=== PATIENT | male | born 1930 | race Caucasian/White ===

== ENCOUNTER 2018-06-11 20:11 | Inpatient (IN) | payer MEDICARE ==
[~2018-06-11] VITALS: Ht 188 cm; Wt 95.5 kg
[~2018-06-11 20:11] MED LIST: AMIO200T40 PO; CARV-50 PO; GLIM1TAB46 PO; MIRA25TA PO; MV-M1TAB37 PO; PROB500T10 PO; RIVA15TA PO; VALS1TAB75 PO
[2018-06-11 21:36] LABS: BASOPHILS # (AUTO) 0.1 X10'3 (0-0.2); BASOPHILS % (AUTO) 0.9 % (0-1); EOSINOPHILS # (AUTO) 0.2 X10'3 (0-0.9); EOSINOPHILS % (AUTO) 2.3 % (0-6); HEMATOCRIT 40.7 % (42.0-52.0); HEMOGLOBIN 13.4 g/dl (14.0-17.9); LYMPHOCYTES # (AUTO) 1.3 X10'3 (1.1-4.8); LYMPHOCYTES % (AUTO) 19.2 % (21-51); MEAN CORPUSCULAR HEMOGLOBIN 33.8 PG (27.0-31.0); MEAN CORPUSCULAR HGB CONC 33.1 % (33.0-36.5); MEAN CORPUSCULAR VOLUME 102.3 FL (78-98); MEAN PLATELET VOLUME 8.5 FL (7.4-10.4); MONOCYTES # (AUTO) 0.7 X10'3 (0-0.9); MONOCYTES % (AUTO) 10.6 % (2-12); NEUTROPHILS # (AUTO) 4.6 X10'3 (1.8-7.7); PLATELET COUNT 169 X10'3 (140-440); RED BLOOD COUNT 3.97 X10'6 (4.70-6.10); RED CELL DISTRIBUTION WIDTH 15.2 % (11.5-14.5); WHITE BLOOD COUNT 6.9 X10'3 (4.5-11.0)
[2018-06-11 21:51] LABS: ALANINE AMINOTRANSFERASE 27 U/L (12-78); ALBUMIN 3.2 G/DL (3.4-5.0); ALBUMIN/GLOBULIN RATIO 0.9 (1.1-1.5); ALKALINE PHOSPHATASE 91 IU/L (46-116); ANION GAP 16 (8-16); ASPARTATE AMINO TRANSFERASE 16 U/L (10-37); BILIRUBIN,TOTAL 0.7 MG/DL (0.1-1.0); BLOOD UREA NITROGEN 45 MG/DL (7-18); CHLORIDE 105 MMOL/L (99-107); CREATININE 2.81 MG/DL (0.60-1.10); GLUCOSE 109 MG/DL (70-104); POTASSIUM 3.4 MMOL/L (3.5-5.1); SODIUM 141 MMOL/L (135-145); TOTAL CARBON DIOXIDE 20.5 MMOL/L (24-32); TOTAL PROTEIN 6.7 G/DL (6.4-8.2); eGFR 22 ML/MIN
[2018-06-11 21:57] LABS: INR 1.7 INR; PROTHROMBIN TIME 17.1 SECONDS (9.0-12.0)
[2018-06-11 21:59] LABS: MAGNESIUM 2.5 MG/DL (1.5-2.4); PHOSPHORUS 3.5 MG/DL (2.3-4.5)
[2018-06-11] MEDS ORDERED: aspirin 325mg tablet PO ONE (22:00)
[2018-06-11] MEDS ORDERED: normal saline 1000ml 1,000 ML IV ONE (22:10)
[2018-06-11] MEDS ORDERED: MIRA50TA PO (22:38)
[2018-06-11] MEDS ORDERED: LOSA1TAB3 PO (22:38)
[2018-06-11] MEDS ORDERED: super beta prostate PO (22:38)
[2018-06-11] MEDS ORDERED: ZOLP10TA PO (22:38)
[2018-06-11] MEDS ORDERED: ROSU40TA21 PO (22:38)
[2018-06-11] MEDS ORDERED: ASPI-611 PO (22:38)
[2018-06-11] MEDS ORDERED: ALLO100T PO (22:38)
[2018-06-11] MEDS ORDERED: ondansetron/PF 4mg/2ml inj IV PRN (22:45)
[2018-06-11] MEDS ORDERED: magnesium hydroxide 30ml (MOM) UD suspension PO PRN (22:45)
[2018-06-11] MEDS ORDERED: acetaminophen 325mg tablet PO PRN (22:45)
[2018-06-11] MEDS ORDERED: mag hydrox/Alum hydrox/simeth 30ml oral suspension PO PRN (22:45)
[2018-06-11 23:00] LABS: HEMOGLOBIN A1C 6.6 % (4.5-6.2)
[2018-06-11 23:15] VITALS: BP 130/75
[2018-06-12 01:11] LABS: CLARITY,URINE CLEAR (Clear); COLOR,URINE YELLOW (Yellow); GLUCOSE, URINE NEGATIVE (Neg); KETONES,URINE NEGATIVE (Neg); LEUKOCYTE ESTERASE ,URINE NEGATIVE (Neg); NITRITES, URINE NEGATIVE (Neg); OCCULT BLOOD,URINE TRACE-INTACT (Neg); PH,URINE 5.5 (4.8-8.0); PROTEIN,URINE TRACE mg/dl (Neg); UROBILINOGEN,URINE 0.2 E.U/dL (0.2-1.0)
[2018-06-12 01:16] LABS: UA COLLECTION TYPE NON-SPECIFIED
[2018-06-12 01:18] LABS: BACTERIA,URINE NONE SEEN /HPF (Neg); MUCUS STRANDS NONE SEEN /LPF (Neg); RBC,URINE 0-2 /HPF (0-2); SQUAMOUS EPITHELIAL CELL,UR NONE SEEN /LPF (FEW); WBC,URINE NONE SEEN /HPF (0-4)
[2018-06-12 02:00] VITALS: BP 125/70
[2018-06-12 04:10] LABS: BASOPHILS % (AUTO) 0.3 % (0-1); EOSINOPHILS # (AUTO) 0.2 X10'3 (0-0.9); EOSINOPHILS % (AUTO) 2.6 % (0-6); HEMATOCRIT 36.9 % (42.0-52.0); HEMOGLOBIN 12.3 g/dl (14.0-17.9); LYMPHOCYTES # (AUTO) 1.5 X10'3 (1.1-4.8); LYMPHOCYTES % (AUTO) 23.1 % (21-51); MEAN CORPUSCULAR HEMOGLOBIN 33.8 PG (27.0-31.0); MEAN CORPUSCULAR HGB CONC 33.4 % (33.0-36.5); MEAN CORPUSCULAR VOLUME 101.3 FL (78-98); MEAN PLATELET VOLUME 8.6 FL (7.4-10.4); MONOCYTES # (AUTO) 0.6 X10'3 (0-0.9); MONOCYTES % (AUTO) 9.1 % (2-12); NEUTROPHILS # (AUTO) 4.1 X10'3 (1.8-7.7); NEUTROPHILS % (AUTO) 64.9 % (42-75); PLATELET COUNT 154 X10'3 (140-440); RED BLOOD COUNT 3.65 X10'6 (4.70-6.10); RED CELL DISTRIBUTION WIDTH 14.8 % (11.5-14.5); WHITE BLOOD COUNT 6.3 X10'3 (4.5-11.0)
[2018-06-12 04:23] LABS: ALANINE AMINOTRANSFERASE 25 U/L (12-78); ALBUMIN 2.8 G/DL (3.4-5.0); ALBUMIN/GLOBULIN RATIO 0.9 (1.1-1.5); ALKALINE PHOSPHATASE 82 IU/L (46-116); ANION GAP 11 (8-16); ASPARTATE AMINO TRANSFERASE 17 U/L (10-37); BILIRUBIN,TOTAL 0.6 MG/DL (0.1-1.0); BLOOD UREA NITROGEN 41 MG/DL (7-18); BUN/CREATININE RATIO 15.8 (5.4-32.0); CALCIUM 8.8 MG/DL (8.5-10.1); CHLORIDE 106 MMOL/L (99-107); CREATININE 2.59 MG/DL (0.60-1.10); GLUCOSE 99 MG/DL (70-104); POTASSIUM 3.3 MMOL/L (3.5-5.1); SODIUM 141 MMOL/L (135-145); TOTAL CARBON DIOXIDE 23.6 MMOL/L (24-32); TOTAL PROTEIN 5.9 G/DL (6.4-8.2); eGFR 24 ML/MIN
[2018-06-12 04:26] LABS: CHOL/HDL RATIO 1.7 (0.00-4.99); CHOLESTEROL 109 MG/DL (0-200); HDL CHOLESTEROL 63 MG/DL (35-60); LDL CHOLESTEROL 18 MG/DL (50-100); TRIGLYCERIDES 162 MG/DL (20-135)
[2018-06-12] MEDS ORDERED: magnesium Cl slow-release 64mg tablet PO PRN (05:35)
[2018-06-12] MEDS ORDERED: potassium Cl 20 mEq SR tablet PO PRN (05:35)
[2018-06-12] MEDS ORDERED: potassium Cl 40MEQ/NS 500ml 500 ML IV PRN ×2 (05:35)
[2018-06-12] MEDS ORDERED: magnesium 4gm in 100ml NS 100 ML IV PRN (05:35)
[2018-06-12] MEDS: potassium Cl 20 mEq SR tablet PO PRN ×2 (05:43→12:43)
[2018-06-12 06:00] VITALS: BP 131/61
[2018-06-12] MEDS ORDERED: rivaroxaban 15mg tablet PO SCH (08:00)
[2018-06-12] MEDS ORDERED: aspirin 81mg tablet.DR PO SCH (08:00)
[2018-06-12] MEDS ORDERED: amiodarone 200mg tablet PO SCH (08:00)
[2018-06-12] MEDS ORDERED: atorvastatin 20mg tablet PO SCH (08:00)
[2018-06-12] MEDS ORDERED: HYDROchlorothiazide 12.5mg capsule PO SCH (08:00)
[2018-06-12] MEDS ORDERED: allopurinol 100mg tablet PO SCH (08:00)
[2018-06-12] MEDS ORDERED: glimepiride 1 MG tablet PO SCH (08:00)
[2018-06-12] MEDS ORDERED: losartan 50mg tablet PO SCH (08:00)
[2018-06-12] MEDS ORDERED: carVEDilol 12.5mg tablet PO SCH (08:00)
[2018-06-12 10:00] VITALS: BP 124/56
[2018-06-12] MEDS ORDERED: zolpidem 5mg tablet PO SCH (21:00)
== END 2018-06-12 17:00 | disposition home or self-care (01) | DRG 123 ==
LOC: ER 20:11 → ORTHO 4S 22:41
PROVIDERS: ADMIT Internal Medicine; ATTEND Internal Medicine
DX: H53.2 Diplopia (principal); I13.0 Hypertensive heart and chronic kidney disease with heart failure and stage 1 through stage 4 chronic kidney disease, or unspecified chronic kidney disease; I69.354 Hemiplegia and hemiparesis following cerebral infarction affecting left non-dominant side; E86.0 Dehydration; I50.9 Heart failure, unspecified; N18.9 Chronic kidney disease, unspecified; E11.22 Type 2 diabetes mellitus with diabetic chronic kidney disease; E78.00 Pure hypercholesterolemia, unspecified; I25.10 Atherosclerotic heart disease of native coronary artery without angina pectoris; I35.0 Nonrheumatic aortic (valve) stenosis; N32.81 Overactive bladder; T44.5X5A Adverse effect of predominantly beta-adrenoreceptor agonists, initial encounter; I48.91 Unspecified atrial fibrillation; Z96.659 Presence of unspecified artificial knee joint; Z60.2 Problems related to living alone; R32 Unspecified urinary incontinence; W18.39XA Other fall on same level, initial encounter; Z79.82 Long term (current) use of aspirin; Z79.899 Other long term (current) drug therapy; Z80.49 Family history of malignant neoplasm of other genital organs; Y93.89 Activity, other specified; Y92.89 Other specified places as the place of occurrence of the external cause; Y99.8 Other external cause status
CPT/HCPCS: 36415; 70450; 70544; 70551; 71045; 80053; 80061; 81001; 82948; 83036; 83735; 84100; 84443; 84484; 85025; 85610; 87070; 93005; 93306; 93880; 97162; 97530; 99285; G0378

== ENCOUNTER 2019-11-07 05:54 | Day surgery (SDC) | payer MEDICARE ==
[2019-11-06 10:08] LABS: BASOPHILS # (AUTO) 0.1 X10'3 (0-0.2); EOSINOPHILS # (AUTO) 0.2 X10'3 (0-0.9); EOSINOPHILS % (AUTO) 3.6 % (0-6); HEMATOCRIT 43.5 % (42.0-52.0); HEMOGLOBIN 14.5 g/dl (14.0-17.9); LYMPHOCYTES # (AUTO) 1.2 X10'3 (1.1-4.8); LYMPHOCYTES % (AUTO) 20.8 % (21-51); MEAN CORPUSCULAR HEMOGLOBIN 35.1 PG (27.0-31.0); MEAN CORPUSCULAR HGB CONC 33.3 g/dL (33.0-36.5); MEAN CORPUSCULAR VOLUME 105.3 FL (78-98); MONOCYTES # (AUTO) 0.5 X10'3 (0-0.9); MONOCYTES % (AUTO) 8.9 % (2-12); NEUTROPHILS # (AUTO) 3.7 X10'3 (1.8-7.7); NEUTROPHILS % (AUTO) 65.7 % (42-75); PLATELET COUNT 147 X10'3 (140-440); RED BLOOD COUNT 4.13 X10'6 (4.70-6.10); RED CELL DISTRIBUTION WIDTH 15.3 % (11.5-14.5); WHITE BLOOD COUNT 5.6 X10'3 (4.5-11.0)
[2019-11-06 10:20] LABS: ANION GAP 8 (8-16); BLOOD UREA NITROGEN 35 MG/DL (7-18); BUN/CREATININE RATIO 14.2 (5.4-32.0); CALCIUM 8.9 MG/DL (8.5-10.1); CHLORIDE 107 MMOL/L (99-107); CREATININE 2.46 MG/DL (0.60-1.10); GLUCOSE 246 MG/DL (70-104); POTASSIUM 4.5 MMOL/L (3.5-5.1); SODIUM 139 MMOL/L (135-145); TOTAL CARBON DIOXIDE 24.1 MMOL/L (24-32); eGFR 25 ML/MIN
[2019-11-06 10:21] LABS: PARTIAL THROMBOPLASTIN TIME 28 SECONDS (22-32)
[~2019-11-07] VITALS: Ht 185.4 cm; Wt 90.2 kg
[2019-11-07] VITALS (12 sets, daily range): BP systolic 109–132; BP diastolic 58–86
[~2019-11-07 05:54] MED LIST changes: +ALLO100T PO; +AMA1T PO; -AMIO200T40 PO; +AMIO200T61 PO; +ASPI-611 PO; -GLIM1TAB46 PO; +LOSA1TAB3 PO; -MIRA25TA PO; -MV-M1TAB37 PO; -PROB500T10 PO; +ROSU40TA22 PO; -VALS1TAB75 PO; +ZOLP10TA PO; +super beta prostate PO
[2019-11-07] MEDS ORDERED: ceFAZolin inj. 2,000 MG in normal saline soln 50 ML IV ONE (06:10)
[2019-11-07] MEDS ORDERED: normal saline 1000ml 1,000 ML IV SCH (06:10)
[2019-11-07] MEDS ORDERED: LEVO25TA2 PO (06:34)
[2019-11-07] MEDS ORDERED: MIRA50TA PO (06:34)
[2019-11-07] MEDS ORDERED: cefazolin/dext.iso 2gm/100ml 100 ML IV ONE (06:50)
[2019-11-07] MEDS ORDERED: LIDOcaine 1% W/epiNEPHrine 1:100,000 20ml vial ONE (07:49)
[2019-11-07] MEDS ORDERED: fentaNYL/PF 50MCG/1 ML 2ML syringe ONE ×2 (07:49→09:28)
[2019-11-07] MEDS ORDERED: midazolam 2 mg/2 ml injection ONE ×2 (07:49→09:28)
[2019-11-07] MEDS ORDERED: ceFAZolin 1000mg inj ONE (07:49)
[2019-11-07] MEDS ORDERED: HYDROcodone/acetaminophen 10/325mg tab PO PRN (10:00)
[2019-11-07] MEDS ORDERED: HYDROcodone/acetaminophen 5mg/325mg tablet PO PRN (10:00)
[2019-11-07] MEDS ORDERED: LORazepam 1 MG tablet PO PRN (10:00)
[2019-11-07] MEDS ORDERED: ceFAZolin 1GM/D5W- ADD-VANTAGE 50 ML IV SCH (16:00)
[2019-11-07] MEDS ORDERED: sod chloride 0.9% 10ml flush syringe IV SCH (16:00)
== END 2019-11-07 15:30 | disposition home or self-care (01) ==
LOC: U 05:54 → MED 3N 05:56 → U 15:30
PROVIDERS: ATTEND Internal Medicine Cardiovascular Disease
DX: I49.5 Sick sinus syndrome (principal); E78.5 Hyperlipidemia, unspecified; I25.10 Atherosclerotic heart disease of native coronary artery without angina pectoris; I48.0 Paroxysmal atrial fibrillation; I11.0 Hypertensive heart disease with heart failure; I50.9 Heart failure, unspecified; M10.9 Gout, unspecified; M19.90 Unspecified osteoarthritis, unspecified site; Z95.2 Presence of prosthetic heart valve; Z98.890 Other specified postprocedural states; Z79.899 Other long term (current) drug therapy; Z87.891 Personal history of nicotine dependence
CPT/HCPCS: 33208; 36415; 71046; 80048; 82948; 85025; 85610; 85730; 93005; 99152; 99153; C1785; C1894; C1898; J0690; J2250; J3010; J7030; A4565; A4620; A6449

== ENCOUNTER 2020-07-20 14:40 | Emergency (ER) | payer OTHER, MEDICARE ==
[~2020-07-20] VITALS: Ht 185.4 cm; Wt 90.5 kg
[~2020-07-20 14:40] MED LIST changes: -ASPI-611 PO; +LEVO25TA2 PO; +MIRA50TA PO; -ZOLP10TA PO; -super beta prostate PO
--- NOTE | 2020-07-20 15:06 | NUR ---
FAMILY SENT NOTE WITH PATIENT, EXPLAINING HIS SYMPTOMS AND REQUESTING FOR HIM TO BE TREATED WITH "BAM".
[2020-07-20] MEDS ORDERED: BAMLANIVIMAB INJECTION 700 MG in normal saline 250ml IV soln 180 ML IV ONE (15:50)
[2020-07-20] MEDS ORDERED: BAMLANIVIMAB INJECTION 700 MG in normal saline 250ml IV soln 250 ML IV ONE (16:05)
--- NOTE | 2020-07-20 18:25 | NUR ---
RENETTA MEDICATION COMPLETE. PT IS TO WAIT ONE HOUR AFTER INFUSION IS COMPLETE. PT HAS BEEN ADVISED TO CALL FOR TRANSPORTATION AT 650 FOR A INSIDE ACCOUNT EXECUTIVE TIME OF 1551
[2020-07-20 19:20] VITALS: BP 145/85
== END 2020-07-20 19:10 | disposition home or self-care (01) ==
LOC: ER 14:40
DX: U07.1 COVID-19 (principal); R50.9 Fever, unspecified; J02.9 Acute pharyngitis, unspecified; R05 Cough; R19.7 Diarrhea, unspecified; R53.83 Other fatigue; I48.91 Unspecified atrial fibrillation; I25.10 Atherosclerotic heart disease of native coronary artery without angina pectoris; G89.29 Other chronic pain; I13.0 Hypertensive heart and chronic kidney disease with heart failure and stage 1 through stage 4 chronic kidney disease, or unspecified chronic kidney disease; E11.22 Type 2 diabetes mellitus with diabetic chronic kidney disease; N18.9 Chronic kidney disease, unspecified; F17.200 Nicotine dependence, unspecified, uncomplicated; Z86.73 Personal history of transient ischemic attack (TIA), and cerebral infarction without residual deficits; Z98.890 Other specified postprocedural states; Z79.899 Other long term (current) drug therapy
CPT/HCPCS: 96365; 99285; J7050

== ENCOUNTER 2020-08-01 10:49 | Emergency (ER) | payer OTHER, MEDICARE ==
[~2020-08-01] VITALS: Ht 188 cm; Wt 88.6 kg
[2020-08-01 12:18] LABS: BASOPHILS % (AUTO) 0.5 % (0-1); EOSINOPHILS % (AUTO) 0.7 % (0-6); HEMATOCRIT 36.2 % (42.0-52.0); HEMOGLOBIN 12.4 g/dl (14.0-17.9); LYMPHOCYTES # (AUTO) 0.7 X10'3 (1.1-4.8); LYMPHOCYTES % (AUTO) 20.3 % (21-51); MEAN CORPUSCULAR HEMOGLOBIN 34.6 PG (27.0-31.0); MEAN CORPUSCULAR HGB CONC 34.4 g/dL (33.0-36.5); MEAN CORPUSCULAR VOLUME 100.6 FL (78-98); MEAN PLATELET VOLUME 8.8 FL (7.4-10.4); MONOCYTES # (AUTO) 0.3 X10'3 (0-0.9); MONOCYTES % (AUTO) 10.1 % (2-12); NEUTROPHILS # (AUTO) 2.2 X10'3 (1.8-7.7); NEUTROPHILS % (AUTO) 68.4 % (42-75); PLATELET COUNT 160 X10'3 (140-440); RED CELL DISTRIBUTION WIDTH 13.7 % (11.5-14.5); WHITE BLOOD COUNT 3.2 X10'3 (4.5-11.0)
[2020-08-01 12:27] LABS: ALANINE AMINOTRANSFERASE 34 U/L (12-78); ALBUMIN 2.4 G/DL (3.4-5.0); ALBUMIN/GLOBULIN RATIO 0.6 (1.1-1.5); ALKALINE PHOSPHATASE 142 IU/L (46-116); ANION GAP 11 (8-16); ASPARTATE AMINO TRANSFERASE 31 U/L (10-37); BILIRUBIN,TOTAL 0.6 MG/DL (0.1-1.0); BLOOD UREA NITROGEN 53 MG/DL (7-18); CALCIUM 8.2 MG/DL (8.5-10.1); CHLORIDE 105 MMOL/L (99-107); CREATININE 2.94 MG/DL (0.60-1.10); GLUCOSE 154 MG/DL (70-104); MAGNESIUM 2.5 MG/DL (1.5-2.4); POTASSIUM 3.9 MMOL/L (3.5-5.1); SODIUM 137 MMOL/L (135-145); TOTAL CARBON DIOXIDE 21.3 MMOL/L (24-32); TOTAL PROTEIN 6.7 G/DL (6.4-8.2); eGFR 20 ML/MIN
[2020-08-01 12:43] LABS: TOTAL CELLS COUNTED 100
[2020-08-01 12:44] LABS: BURR CELLS FEW; ELLIPTOCYTES FEW; PLATELET ESTIMATE NORMAL; TEAR DROP CELLS FEW
[2020-08-01 13:29] LABS: CLARITY,URINE CLEAR (Clear); COLOR,URINE YELLOW (Yellow); GLUCOSE, URINE NEGATIVE (Neg); KETONES,URINE NEGATIVE (Neg); LEUKOCYTE ESTERASE ,URINE NEGATIVE (Neg); NITRITES, URINE NEGATIVE (Neg); OCCULT BLOOD,URINE NEGATIVE (Neg); PH,URINE 5.5 (4.8-8.0); PROTEIN,URINE NEGATIVE (Neg); UROBILINOGEN,URINE 0.2 E.U/dL (0.2-1.0)
[2020-08-01 13:30] LABS: UA COLLECTION TYPE URINAL
--- NOTE | 2020-08-01 13:34 | NUR ---
Daughter updated on phone
[2020-08-01 14:49] VITALS: BP 97/74
== END 2020-08-01 15:25 | disposition home or self-care (01) ==
LOC: ER 10:49
DX: U07.1 COVID-19 (principal); M25.552 Pain in left hip; I48.91 Unspecified atrial fibrillation; I25.10 Atherosclerotic heart disease of native coronary artery without angina pectoris; I13.0 Hypertensive heart and chronic kidney disease with heart failure and stage 1 through stage 4 chronic kidney disease, or unspecified chronic kidney disease; E11.22 Type 2 diabetes mellitus with diabetic chronic kidney disease; N18.9 Chronic kidney disease, unspecified; I50.9 Heart failure, unspecified; E78.00 Pure hypercholesterolemia, unspecified; Z98.61 Coronary angioplasty status; Z79.899 Other long term (current) drug therapy
CPT/HCPCS: 36415; 71045; 72170; 80053; 81003; 83605; 83735; 84145; 85007; 85025; 87040; 93005; 99285